=== PATIENT | male | born 1980 | race Two or more races ===

== ENCOUNTER 2020-02-27 16:03 | Emergency (ER) | payer OTHER ==
[~2020-02-27] VITALS: Ht 172.7 cm; Wt 95.1 kg
[2020-02-27 16:05] VITALS: BP 143/92
[2020-02-27] MEDS ORDERED: HYDR25SU18 RC (16:37)
[2020-02-27] MEDS ORDERED: SENN-121 PO (16:37)
--- NOTE | 2020-02-27 16:37 | PHYS DOC ---
Past History Past Medical History: No Pertinent History Past Surgical History: No Surgical History Smoking: Non-smoker Alcohol Use: None Drug Use: None General Adult EDM: Chief Complaint: RECTAL BLEED HPI: HPI: 39-year-old male presents with report of bright red blood in toilet on toilet paper this morning after having a bowel movement. Denies any rectal pain. Denies lightheadedness or dizziness. Patient reports he noticed the same issue at noon today. Patient had presented to urgent care where a rectal exam was performed and reportedly an occult stool sample was taken and reported as positive. Patient therefore instructed to present to the ER for further evaluation and treatment. Denies any fever or chills. Denies use of blood thinners. Review of Systems: Review of Systems: Constitutional: Denies fever or chills Eyes: Denies redness or eye pain HENT: Denies nasal congestion or sore throat Respiratory: Denies cough or shortness of breath Cardiovascular: Denies chest pain or palpitations GI: Denies abdominal pain, nausea, vomiting, constipation, or rectal pain; reports rectal bleeding : Denies dysuria or hematuria Musculoskeletal: Denies back pain or joint pain Integument: Denies rash or skin lesions Neurologic: Denies headache, lightheadedness, dizziness, focal weakness, or sensory changes Complete systems were reviewed and found to be within normal limits, except as documented in this note. Allergies: Allergies: Allergies Coded Allergies Type Severity Reaction Last Updated Verified No Known Drug Allergies 02/27/20 No Physical Exam: PE: Constitutional: Well developed, well nourished, no acute distress, non-toxic appearance HENT: Normocephalic, atraumatic Eyes: Conjunctiva normal, no discharge Neck: Normal range of motion, no tenderness, supple Lungs & Thorax: No respiratory distress, equal chest rise and fall Abdomen: Soft, no tenderness, no guarding/rebound tenderness/distention Rectal exam: No external hemorrhoid noted, no gross blood and no definitive internal hemorrhoid appreciated on digital rectal Skin: Warm, dry, no erythema, no rash Extremities: No tenderness, ROM intact, no edema Neurologic: Alert and oriented X 3, no focal deficits noted Psychologic: Affect normal, judgment normal Current Patient Data: Vital Signs: Vital Signs Date Time Temp Pulse Resp B/P (MAP) Pulse Ox O2 Delivery O2 Flow Rate FiO2 02/27/20 16:05 98.1 78 16 143/92 (109) 96 Room Air EKG: EKG: [] Radiology/Procedures: Radiology/Procedures: [] Course & Med Decision Making: Course & Med Decision Making Patient presents with rectal bleeding without associated rectal or abdominal pain. Abdomen nonperitoneal. Patient reports lifting heavy weights. No external hemorrhoid appreciated. No gross blood noted on digital rectal exam. More likely patient has bleeding internal hemorrhoid. Orthostatic vital signs stable. Patient stable for discharge with outpatient follow-up with PCP/GI. GI referral provided. Discussed findings and plan with patient, who acknowledges understanding and agreement. Dragon Disclaimer: Dragon Disclaimer: This electronic medical record was generated, in whole or in part, using a voice recognition dictation system. Departure Departure: Impression: Primary Impression: Rectal bleeding Disposition: 01 DC HOME SELF CARE/HOMELESS Condition: STABLE Referrals: LESLIE SOTO DO (PCP) CORY HICKMAN MD Patient Instructions: Hemorrhoids, [id number], Rectal Bleeding, [id number] Scripts Hydrocortisone Acetate (ANUSOL-HC) 25 Mg Supp.rect 1 SUPP RC BID for Rectal bleeding for 7 Days, #14 SUPP 0 Refills Prov: FLORIDALMA MONTEZ DO 02/27/20 Sennosides/Docusate Sodium (Colace 2-in-1 Tablet) 1 Each Tablet 1 TAB PO QHS for Stool softner, #30 TAB 0 Refills Prov: FLORIDALMA MONTEZ DO 02/27/20 FLORIDALMA MONTEZ DO Feb 27, 2020 16:37
== END 2020-02-27 16:40 | disposition home or self-care (01) ==
LOC: ER 16:03
DX: K62.5 Hemorrhage of anus and rectum (principal)
CPT/HCPCS: 99282